=== PATIENT | female | born 1965 | race American Indian/Alaskan Native ===

== ENCOUNTER 2017-02-15 21:05 | Emergency (ER) | payer OTHER ==
[2017-02-15 21:06] VITALS: BMI 40.1
[2017-02-15 21:38] VITALS: TEMP 98.6
[2017-02-15 22:01] LABS: RBC URINE 1 /hpf (0-3); URINE BILIRUBIN NEGATIVE (NEGATIVE); URINE BLOOD NEGATIVE (NEGATIVE); URINE COLOR Yellow (YELLOW); URINE GLUCOSE (UA) NORMAL (Normal); URINE KETONE NEGATIVE (NEGATIVE); URINE LEUKOCYTE ESTERASE NEG Leu/uL (Negative); URINE PROTEIN NEGATIVE (NEGATIVE); URINE UROBILINOGEN NORMAL mg/dL (0.2-1.0); WBC URINE 1 /hpf (0-5)
[2017-02-15] MEDS ORDERED: cefTRIAXone (Rocephin) 250 mg Inj IM STA (22:17)
--- NOTE | 2017-02-15 22:21 | C.PDOC ---
History Of Present Illness 51 yr old female presents to the ER with complaints of burning sensation to her legs when she urinates and discharge. "My urine is acidic." Patient states she is concerned about a UTI. Notes last intercourse was 3 weeks ago. Patient denies fever, chills, nausea, vomiting, abdominal pain, back pain, vaginal itch , weakness or numbness. Time Seen by Provider: 02/15/17 21:39 Chief Complaint (Nursing): Female Genitourinary History Per: Patient History/Exam Limitations: no limitations Onset/Duration Of Symptoms: Days Past Medical History Reviewed: Historical Data, Nursing Documentation, Vital Signs Vital Signs: Last Vital Signs Temp 98.6 F 02/15/17 21:34 Pulse 70 02/15/17 22:58 Resp 16 02/15/17 22:58 BP 138/78 02/15/17 22:58 Pulse Ox 100 02/16/17 12:43 Family History: States: No Known Family Hx - Social History Hx Alcohol Use: Yes Hx Substance Use: No - Immunization History Hx Tetanus Toxoid Vaccination: No Hx Influenza Vaccination: Yes Hx Pneumococcal Vaccination: No Review Of Systems Except As Marked, All Systems Reviewed And Found Negative. Constitutional: Negative for: Fever, Chills Gastrointestinal: Negative for: Nausea, Vomiting, Abdominal Pain Genitourinary: Positive for: Vaginal Discharge Musculoskeletal: Negative for: Back Pain Neurological: Negative for: Weakness, Numbness Physical Exam - Physical Exam Appears: Non-toxic, No Acute Distress Skin: Warm, Dry, No Rash Head: Atraumatic, Normacephalic Eye(s): bilateral: Normal Inspection, EOMI Nose: Normal Oral Mucosa: Moist Chest: Symmetrical, No Tenderness Cardiovascular: Rhythm Regular, No Murmur Respiratory: Normal Breath Sounds, No Rales, No Rhonchi, No Stridor, No Wheezing Gastrointestinal/Abdominal: Normal Exam, Soft, No Tenderness, No Guarding, No Rebound Pelvic: Normal External Exam (No rash. No sores.), Vaginal Discharge (White thick discharge), No Cervical Motion Tenderness Extremity: Normal ROM, No Swelling Neurological/Psych: Oriented x3, Normal Speech ED Course And Treatment O2 Sat by Pulse Oximetry: 100 (RA) Pulse Ox Interpretation: Normal Progress Note: Patient is requesting STD treatment. Rocephin and ZIrthomycin ordered. Instructed patient to follow up with her OBGYN in 1-2 days. Medical Decision Making Medical Decision Making: PLAN: * HCG * Urinalysis * Zithromax PO * Rocephin IM Disposition - Disposition Disposition: HOME/ ROUTINE Disposition Time: 22:19 Condition: STABLE Additional Instructions: Follow up with your primary medical doctor or clinic in 2-5 days for further evaluation. Take medications as prescribed. Return to the emergency department at any time if symptoms persist or worsen. Prescriptions: Metronidazole [Metrogel-Vaginal] 1 ea VG HS 5 Days gel Instructions: Vaginitis (ED) Forms: [employer] (Yakut) - Clinical Impression Clinical Impression: Vaginitis - PA / TECHNICAL TRAINING COORDINATOR / Resident Statement MD/DO has reviewed & agrees with the documentation as recorded. - Scribe Statement The provider has reviewed the documentation as recorded by the Scribe Jyoti Smart All medical record entries made by the Scribe were at my direction and personally dictated by me. I have reviewed the chart and agree that the record accurately reflects my personal performance of the history, physical exam, medical decision making, and the department course for this patient. I have also personally directed, reviewed, and agree with the discharge instructions and disposition.
[2017-02-15 22:59] VITALS: BP 138/78; PULSE 70; RESP 16
[2017-02-16 12:41] VITALS: O2SAT 100
== END 2017-02-15 22:58 | disposition home or self-care (01) ==
LOC: C.ER 21:05
DX: N76.0 Acute vaginitis (principal)
CPT/HCPCS: 81001; 84703; 87086; 96372; 99283; J0696

== ENCOUNTER 2017-04-08 17:34 | Emergency (ER) | payer OTHER ==
[2017-04-08 17:34] VITALS: BMI 40.1
[2017-04-08 18:04] VITALS: RESP 18
[2017-04-08 18:55] LABS: RBC URINE 2 /hpf (0-3); URINE BACTERIA FEW (<OCC); URINE BILIRUBIN NEGATIVE (NEGATIVE); URINE BLOOD NEGATIVE (NEGATIVE); URINE COLOR Yellow (YELLOW); URINE GLUCOSE (UA) NORMAL (Normal); URINE KETONE NEGATIVE (NEGATIVE); URINE LEUKOCYTE ESTERASE 3+ Leu/uL (Negative); URINE PROTEIN NEGATIVE (NEGATIVE); URINE UROBILINOGEN NORMAL mg/dL (0.2-1.0); WBC URINE 21 /hpf (0-5)
[2017-04-08] MEDS ORDERED: cefTRIAXone (Rocephin) 250 mg Inj IM STA (19:53)
--- NOTE | 2017-04-08 20:26 | C.PDOC ---
History Of Present Illness 51 yr old female presents to the ER stating for the past 2 days she has had foul smelling discharge, associated with irritation and itch. Patient denies fever, nausea, vomiting, abdominal pain, dysuria or back pain. Time Seen by Provider: 04/08/17 18:11 Chief Complaint (Nursing): Female Genitourinary History Per: Patient History/Exam Limitations: no limitations Onset/Duration Of Symptoms: Days (2) Past Medical History Reviewed: Historical Data, Nursing Documentation, Vital Signs Vital Signs: Last Vital Signs Temp 98.2 F 04/08/17 20:38 Pulse 75 04/08/17 20:38 Resp 18 04/08/17 20:38 BP 124/75 04/08/17 20:38 Pulse Ox 98 04/08/17 20:38 Family History: States: No Known Family Hx - Social History Hx Alcohol Use: Yes Hx Substance Use: No - Immunization History Hx Tetanus Toxoid Vaccination: No Hx Influenza Vaccination: Yes Hx Pneumococcal Vaccination: No Review Of Systems Except As Marked, All Systems Reviewed And Found Negative. Constitutional: Negative for: Fever Gastrointestinal: Negative for: Nausea, Vomiting, Abdominal Pain Genitourinary: Positive for: Vaginal Discharge (Foul smelling), Other ((+) itch and irritation). Negative for: Dysuria Musculoskeletal: Negative for: Back Pain Physical Exam - Physical Exam Appears: Non-toxic, No Acute Distress Skin: Warm, Dry, No Rash Head: Atraumatic, Normacephalic Oral Mucosa: Moist Respiratory: Normal Breath Sounds, No Rales, Rhonchi, No Stridor, No Wheezing Gastrointestinal/Abdominal: Soft, No Tenderness, No Guarding, No Rebound Pelvic: Vaginal Discharge (White/Yellow curdish discharge), No Cervical Motion Tenderness, No Adnexal Tenderness, No Tender Uterus Neurological/Psych: Oriented x3, Normal Speech, Normal Motor ED Course And Treatment O2 Sat by Pulse Oximetry: 100 (RA) Pulse Ox Interpretation: Normal Medical Decision Making Medical Decision Making: PLAN: * Chlamydia/GC * Urinalysis * Diflucan PO * Flagyl PO * Zithromax PO * Rocephin IM Disposition - Disposition Referrals: [facility] at [facility] [Outside] Disposition: HOME/ ROUTINE Disposition Time: 20:23 Condition: GOOD Additional Instructions: Follow up with the medical doctor within 1-2 days. Return if worsened. Prescriptions: Fluconazole [Diflucan] 150 mg PO ONCE #1 tab metroNIDAZOLE [Flagyl] 500 mg PO BID #14 tab Instructions: Bacterial Vaginosis (ED) Forms: [employer] (Mauritanian) - Clinical Impression Clinical Impression: Bacterial vaginosis - PA / DRY FOLDER CLOTH / Resident Statement MD/DO has reviewed & agrees with the documentation as recorded. - Scribe Statement The provider has reviewed the documentation as recorded by the Scribe Jyoti Smart All medical record entries made by the Maria Isabelibrenata were at my direction and personally dictated by me. I have reviewed the chart and agree that the record accurately reflects my personal performance of the history, physical exam, medical decision making, and the department course for this patient. I have also personally directed, reviewed, and agree with the discharge instructions and disposition.
[2017-04-08 20:38] VITALS: BP 124/75; PULSE 75; TEMP 98.2
[2017-04-08 20:51] VITALS: O2SAT 100
== END 2017-04-08 20:39 | disposition home or self-care (01) ==
LOC: C.ER 17:34
DX: N76.0 Acute vaginitis (principal)
CPT/HCPCS: 81001; 87491; 87591; 96372; 99284; J0696

== ENCOUNTER 2018-08-05 20:48 | Emergency (ER) | payer MEDICAID, OTHER ==
[2018-08-05 20:48] VITALS: BMI 40.1
[2018-08-05 21:31] VITALS: O2SAT 100
[2018-08-05 22:32] VITALS: BP 119/78; PULSE 66; RESP 18; TEMP 98.6
--- NOTE | 2018-08-05 22:33 | C.PDOC ---
History Of Present Illness 52 year old female presents to the ED c/o left knee pain for the past week. Patient reports she bumped her knee on a rail. Patient notices the area has increased swelling. Patient also c/o foul smelling vaginal discharge associated with vagina itching for the past 2 days. Patient denies fever, chills, nausea, vomit, diarrhea, rash, dysuria, back pain. Time Seen by Provider: 08/05/18 21:13 Chief Complaint (Nursing): Lower Extremity Problem/Injury History Per: Patient History/Exam Limitations: no limitations Onset/Duration Of Symptoms: Days Current Symptoms Are (Timing): Still Present Recent travel outside of the [place]: No Additional History Per: Patient - Knee Description Of Injury: Struck Against Object Past Medical History Reviewed: Historical Data, Nursing Documentation, Vital Signs Vital Signs: Last Vital Signs Temp 98.6 F 08/05/18 22:31 Pulse 66 08/05/18 22:31 Resp 18 08/05/18 22:31 BP 119/78 08/05/18 22:31 Pulse Ox 100 08/05/18 22:31 - Medical History PMH: No Chronic Diseases Surgical History: No Surg Hx Family History: States: Unknown Family Hx - Social History Hx Alcohol Use: Yes Hx Substance Use: No - Immunization History Hx Tetanus Toxoid Vaccination: No Hx Influenza Vaccination: Yes Hx Pneumococcal Vaccination: No Review Of Systems Constitutional: Negative for: Fever, Chills Cardiovascular: Negative for: Chest Pain Respiratory: Negative for: Shortness of Breath Musculoskeletal: Positive for: Leg Pain. Negative for: Foot Pain Skin: Negative for: Rash Neurological: Negative for: Weakness, Numbness, Headache, Dizziness Physical Exam - Physical Exam Appears: Non-toxic, No Acute Distress Skin: Normal Color, Warm, Dry Head: Atraumatic, Normacephalic Eye(s): bilateral: Normal Inspection Neck: Normal ROM, Supple Pelvic: Vaginal Discharge (fishy, yellowish ), No Cervical Motion Tenderness, No Adnexal Tenderness, No Mass Extremity: Normal ROM (pain on left knee movement), Tenderness (anterior aspect left knee), Capillary Refill (< 2 seconds), No Deformity, Swelling (left knee, no gross effusion), No Other (erythema or warmth) Extremity: Bilateral: Atraumatic, Normal Color And Temperature Pulses: Left Dorsalis Pedis: Normal, Right Dorsalis Pedis: Normal Neurological/Psych: Oriented x3, Normal Speech, Normal Motor, Normal Sensation Gait: Steady ED Course And Treatment O2 Sat by Pulse Oximetry: 100 (ON RA) Pulse Ox Interpretation: Normal - Other Rad Left knee X-Ray X-Ray: Interpreted by Me, Viewed By Me Interpretation: No acute pathology observed Progress Note: Plan: - Left knee X-Ray. - Valium 5 mg PO. Imaging results were discussed with patient. Gaurav wrap was applied by tech and checked by me. Patient was advised to take NSAIDs for pain management and to follow up with PMD for further evaluation. Disposition - Disposition Referrals: [facility] at [facility] [Outside] Disposition: HOME/ ROUTINE Disposition Time: 23:50 Condition: STABLE Additional Instructions: Take medications as directed LEg elevation Apply ICE to area Return to ER if worse Prescriptions: Ibuprofen [Motrin] 600 mg PO Q6H #30 tab metroNIDAZOLE [Flagyl] 500 mg PO BID #14 tab Instructions: Bacterial Vaginosis (DC), Knee Pain (DC) Forms: [employer] (Guyanese), Work Excuse, Accompanied To ED By: - Clinical Impression Clinical Impression: Bacterial vaginosis, Knee pain, left - PA / TREKKING GUIDE / Resident Statement MD/DO has reviewed & agrees with the documentation as recorded. - Scribe Statement The provider has reviewed the documentation as recorded by the Scribe Deric Jaime All medical record entries made by the Scribe were at my direction and personally dictated by me. I have reviewed the chart and agree that the record accurately reflects my personal performance of the history, physical exam, medical decision making, and the department course for this patient. I have also personally directed, reviewed, and agree with the discharge instructions and disposition.
--- NOTE | 2018-08-06 09:01 | RAD ---
Date of service: 08/05/2018 PROCEDURE: Left Knee Radiographs. HISTORY: Pain. COMPARISON: None. TECHNIQUE: 2 views obtained. FINDINGS: BONES: Normal. No fracture. JOINTS: Normal. No osteoarthritis. JOINT EFFUSION: Probable effusion present OTHER FINDINGS: quadriceps insertional enthesophyte. IMPRESSION: No fracture or lytic lesion. Probable effusion. quadriceps insertional enthesophyte.
== END 2018-08-05 22:51 | disposition home or self-care (01) ==
LOC: C.ER 20:48
DX: M25.562 Pain in left knee (principal); N76.0 Acute vaginitis